=== PATIENT | female | born 1950 | race Caucasian/White ===

== ENCOUNTER → 2017-10-22 | Outpatient (CLI) | payer MEDICARE ==
--- NOTE | 2017-10-22 11:01 | CT ---
EXAMINATION TYPE: CT sinus wo con DATE OF EXAM: 10/22/2017 COMPARISON: NONE HISTORY: Chronic sinusitis CT DLP: 605.[address] of the paranasal sinuses was performed in the axial and coronal planes. Bone and soft tissue settings are submitted. Mucosal thickening of the bilateral maxillary sinuses. Partial narrowing right ostiomeatal unit with obstruction left ostiomeatal unit. There appear to be changes of partial ethmoidectomy. Remaining eth moid air cells demonstrate mucosal thickening as well. Mild mucosal thickening at the base of the fro ntal sinus. Mild mucosal thickening sphenoid sinus as well. No air-fluid levels identified. The nasal septum is midline. No bony destructive changes are seen within the field of view. IMPRESSION: 1. Findings compatible with chronic pansinusitis.
--- NOTE | 2017-10-22 11:30 | CT ---
EXAMINATION TYPE: CT chest wo con DATE OF EXAM: 10/22/2017 COMPARISON: NONE HISTORY: COPD CT DLP: 455.30 mGycm High-resolution noncontrast CT of the chest was performed with the patient in the prone and supine po sitions. Lung and mediastinal window settings are submitted. The lungs appear to be well-aerated. I do not see evidence for fibrotic change. Mild lower lobe bron chiectasis right greater than left. Mild parenchymal scarring right lower lobe, left lower lobe and r ight middle lobe. Small nodular density in the region of the lingula measuring 4.9 mm. No additional nodules seen. No pleural effusion is identified. I do not see evidence for hilar or mediastinal mass or adenopathy. IMPRESSION: 1. Mild lower lobe bronchiectasis right greater than left. 2. No evidence for fibrosis. 3. Small nonspecific nodule within the lingula. Standard CT of the chest is recommended in 3-4 months for further evaluation.
== END | disposition home or self-care (01) ==
LOC: RADCTMAIN 09:15
PROVIDERS: ATTEND Internal Medicine
DX: J47.9 Bronchiectasis, uncomplicated (principal); J32.9 Chronic sinusitis, unspecified
CPT/HCPCS: 70486; 71250

== ENCOUNTER → 2017-12-04 | Outpatient (CLI) | payer MEDICARE ==
[2017-12-04 10:26] LABS: Basophils # (A) 0.1 k/uL (0-0.2); Basophils % (A) 1 %; Eosinophils # (A) 0.9 k/uL (0-0.7); Eosinophils % (A) 11 %; HCT 37.7 % (34.0-46.0); HGB 13.2 gm/dL (11.4-16.0); Lymphocytes # (A) 1.3 k/uL (1.0-4.8); Lymphocytes % (A) 17 %; MCH 28.2 pg (25.0-35.0); MCHC 34.9 g/dL (31.0-37.0); MCV 80.8 fL (80.0-100.0); Mean Platelet Volume 7.4; Monocytes # (A) 0.7 k/uL (0-1.0); Monocytes % (A) 8 %; Neutrophils # (A) 4.8 k/uL (1.3-7.7); Neutrophils % (A) 61 %; Platelet Count 263 k/uL (150-450); RBC 4.67 m/uL (3.80-5.40); RDW 14.3 % (11.5-15.5); WBC 7.8 k/uL (3.8-10.6)
[2017-12-04 10:39] LABS: ALT 25 U/L (9-52); AST 20 U/L (14-36); Albumin 3.9 g/dL (3.5-5.0); Alkaline Phosphatase 73 U/L (38-126); Anion Gap 11 mmol/L; Blood Urea Nitrogen 13 mg/dL (7-17); Calcium 9.6 mg/dL (8.4-10.2); Carbon Dioxide 28 mmol/L (22-30); Chloride 104 mmol/L (98-107); Glucose 103 mg/dL (74-99); Potassium 3.4 mmol/L (3.5-5.1); Sodium 143 mmol/L (137-145); Total Bilirubin 0.4 mg/dL (0.2-1.3); Total Protein 6.7 g/dL (6.3-8.2)
[2017-12-04 10:46] LABS: Total Eosinophil Count 886 #EOS/uL (150-300)
[2017-12-04 18:14] LABS: Alternaria alternata IgE <0.10 kU/L; Birch IgE <0.10 kU/L; Cockroach IgE <0.10 kU/L; Dermato. farinae IgE <0.10 kU/L; Elm IgE <0.10 kU/L; Maple (Box Elder) IgE <0.10 kU/L; Oak IgE <0.10 kU/L; Red Top (Bentgrass) IgE <0.10 kU/L
[2017-12-05 13:53] LABS: Immunoglobulin M 51.6 mg/dL (40.0-280.0)
== END | disposition home or self-care (01) ==
LOC: LABWHC1 09:18
PROVIDERS: ATTEND Internal Medicine
DX: Z13.29 Encounter for screening for other suspected endocrine disorder (principal); Z13.220 Encounter for screening for lipoid disorders; J47.9 Bronchiectasis, uncomplicated; D83.9 Common variable immunodeficiency, unspecified; J45.50 Severe persistent asthma, uncomplicated; J32.0 Chronic maxillary sinusitis
CPT/HCPCS: 36415; 80053; 82784; 82785; 84443; 85008; 85025; 86003

== ENCOUNTER 2024-05-29 13:12 | Emergency (ER) | payer MEDICARE ==
[2024-05-29 13:20] VITALS: RESP 18; TEMP 98.3
--- NOTE | 2024-05-29 13:44 | ED ---
General Adult HPI - General Chief complaint: Weakness Stated complaint: both leg weakness/pain Time Seen by Provider: 05/29/24 13:19 Source: patient Mode of arrival: ambulatory Limitations: no limitations - History of Present Illness Initial comments: Dictation was produced using [employer] dictation software. please excuse any grammatical, word or spelling errors. Chief Complaint: 73-year-old female with generalized weakness History of Present Illness: Patient 73-year-old female she had hip surgery late last year. States that she has been undergoing physical therapy. Patient states that for the last week or so she has been having worsening weakness. She states that her whole body feels weak but mostly feels like it is in her left leg. She went to physical therapy and was having so much weakness that she needed help getting into her car. Patient lives at home by herself. She states that she does not have any trouble performing her activities of daily living. No fever, chills or night sweats. She notes that her left leg felt much more weak 3 days ago The ROS documented in this emergency department record has been reviewed and confirmed by me. Those systems with pertinent positive or negative responses have been documented in the HPI. All other systems are other negative and/or noncontributory. - Related Data Allergies Allergy/AdvReac Type Severity Reaction Status Date / Time No Known Allergies Allergy Verified 05/29/24 13:20 Review of Systems ROS Statement: Those systems with pertinent positive or pertinent negative responses have been documented in the HPI. ROS Other: All systems not noted in ROS Statement are negative. Past Medical History Past Medical History: Hypertension Additional Past Medical History / Comment(s): hypothyroidism, OP, History of Any Multi-Drug Resistant Organisms: None Reported Additional Past Surgical History / Comment(s): hip surgery- sep 25 2023 Past Psychological History: Depression Smoking Status: Never smoker Past Alcohol Use History: None Reported Past Drug Use History: None Reported General Exam - General Exam Comments Initial Comments: PHYSICAL EXAM: General Impression: Alert and oriented x3, not in acute distress HEENT: Normocephalic atraumatic, extra-ocular movements intact, pupils equal and reactive to light bilaterally, mucous membranes moist. Cardiovascular: Heart regular rate and rhythm Chest: Able to complete full sentences, no retractions, no tachypnea Abdomen: abdomen soft, non-tender, non-distended, no organomegaly Musculoskeletal: Pulses present and equal in all extremities, no peripheral edema Motor: no focal deficits noted Neurological: CN II-XII grossly intact, no sensory noted. 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 No ID prolongation, no QTC prolongation. EKG for comparison. right Bundle branch block. overall, this EKG is unremarkable Medical Decision Making - Medical Decision Making Was pt. sent in by a medical professional or institution (, PA, HAND EDGER, urgent care, hospital, or alf...) When possible be specific @ -No Did you speak to anyone other than the patient for history (EMS, parent, family, police, friend...)? What history was obtained from this source @ -No Did you review nursing and triage notes (agree or disagree)? Why? @ -I reviewed and agree with nursing and triage notes Were old charts reviewed (outside hosp., previous admission, EMS record, old EKG, old radiological studies, urgent care reports/EKG's, alf records)? Report findings @ -No old charts were reviewed Differential Diagnosis (chest pain, altered mental status, abdominal pain women, abdominal pain men, vaginal bleeding, musculoskeletal, weakness, fever, dyspnea, syncope, headache, dizziness, GI bleed, back pain, seizure, CVA, palpatations, mental health)? @ - Differential CVA: Ischemic stroke, hemorrhagic stroke, brain tumor, atypical migraine, Wernicke's encephalopathy, seizure, multiple sclerosis, meningitis, encephalitis, hypogly cemia, Guillain-Chen, electrolytes disturbance, myasthenia gravis.... This is not meant to be an all-inclusive list EKG interpreted by me (3pts min.). @ -See above X-rays interpreted by me (1pt min.). @ -Left hip x-ray shows no acute processes CT interpreted by me (1pt min.). @ -The brain shows no acute processes U/S interpreted by me (1pt. min.). @ -None done What testing was considered but not performed or refused? (CT, X-rays, U/S, labs)? Why? @ -None What meds were considered but not given or refused? Why? @ -None Was smoking cessation discussed for >3mins.? @ -No Were there social determinants of health that impacted care today? How? (Homelessness, low income, unemployed, alcoholism, drug addiction, transportation, low edu. Level, literacy, decrease access to med. care, group home, rehab)? @ -No Was there de-escalation of care discussed even if they declined (Discuss DNR or withdrawal of care, Hospice)? DNR status @ -No What co-morbidities impacted this encounter? (DM, HTN, Smoking, COPD, CAD, Cancer, CVA, ARF, Chemo, Hep., AIDS, mental health diagnosis, sleep apnea, morbid obesity)? @ -Left hip surgery Was patient admitted / discharged? Hospital course, mention meds given and route, prescriptions, significant lab abnormalities, going to OR and other pertinent info. @ -73-year-old female presents with chief complaint of left lower extremity weakness states that her symptoms have been ongoing for days. Patient has an NIH score of 0-1 barely noticeable drift in her left lower extremity. Patient does complain of generalized weakness. Laboratory evaluation obtained. Hemoglobin 9.7. Diminishing levels for the last couple years. Metabolic panel shows slight hypomagnesemia 1.5. This is negative. CT brain is negative. Clinical presentation slightly suspicious for acute CVA given that patient has focal isolated left lower extremity weakness. Although it is not much appreciated on physical examination. Patient recommended for observation admission with neurologist evaluation. She refused rather be discharged. She is told to follow-up closely with primary care doctor. Patient given magnesium replacement. Did you discuss the management of the patient with other professionals (professionals i.e. , PA, HAND EDGER, lab, RT, psych nurse, social media executive, over hauler helper, teacher, navigation officer, onsite case manager)? Give summary @ -No Was critical care preformed (if so, how long)? @ -No Undiagnosed new problem with uncertain prognosis? @ -No Drug Therapy requiring intensive monitoring for toxicity (Heparin, Nitro, Insulin, Cardizem)? @ -No Were any procedures done? @ -No Diagnosis/symptom? Acute, or Chronic, or Acute on Chronic? Uncomplicated (without systemic symptoms) or Complicated (systemic symptoms)? @ -Left lower extremity weakness Side effects of treatment? @ -No Exacerbation, Progression, or Severe Exacerbation? @ -No Poses a threat to life or bodily function? How? (Chest pain, [place], [place], pneumonia, PE, COPD, DKA, ARF, appy, cholecystitis, CVA, Diverticulitis, Homicidal, Suicidal, threat to staff... and all critical care pts) @ -yes - Lab Data Result diagrams: 05/29/24 14:00 05/29/24 14:00 Lab Results 05/29/24 05/29/24 05/29/24 Range/Units 14:00 14:00 14:36 WBC 5.8 (3.8-10.6) k/uL RBC 3.35 L (3.80-5.40) m/uL Hgb 9.7 L (11.4-16.0) gm/dL Hct 28.5 L (34.0-46.0) % MCV 84.8 (80.0-100.0) fL MCH 28.9 (25.0-35.0) pg MCHC 34.1 (31.0-37.0) g/dL RDW 13.3 (11.5-15.5) % Plt Count 338 (150-450) k/uL MPV 6.9 Neutrophils % 71 % Lymphocytes % 18 % Monocytes % 9 % Eosinophils % 0 % Basophils % 0 % Neutrophils # 4.1 (1.3-7.7) k/uL Lymphocytes # 1.0 (1.0-4.8) k/uL Monocytes # 0.5 (0-1.0) k/uL Eosinophils # 0.0 (0-0.7) k/uL Basophils # 0.0 (0-0.2) k/uL Sodium 137 (137-145) mmol/L Potassium 3.6 (3.5-5.1) mmol/L Chloride 102 (98-107) mmol/L Carbon Dioxide 30 (22-30) mmol/L Anion Gap 5 mmol/L BUN 31 H (7-17) mg/dL Creatinine 1.17 H (0.52-1.04) mg/dL Est GFR (CKD-EPI)AfAm 54 (>60 ml/min/1.73 sqM) Est GFR (CKD-EPI)NonAf 47 (>60 ml/min/1.73 sqM) Glucose 94 (74-99) mg/dL Calcium 9.4 (8.4-10.2) mg/dL Magnesium 1.5 L (1.6-2.3) mg/dL TSH 1.390 (0.465-4.680) mIU/L Urine Color Colorless Urine Appearance Clear (Clear) Urine pH 5.5 (5.0-8.0) Ur Specific Slick 1.017 (1.001-1.035) Urine Protein Negative (Negative) Urine Glucose (UA) Negative (Negative) Urine Ketones Negative (Negative) Urine Blood Negative (Negative) Urine Nitrite Negative (Negative) Urine Bilirubin Negative (Negative) Urine Urobilinogen <2.0 (<2.0) mg/dL Ur Leukocyte Esterase Moderate H (Negative) Urine RBC 3 (0-5) /hpf Urine WBC 3 (0-5) /hpf Ur Squamous Epith Cells <1 (0-4) /hpf Hyaline Casts 1 (0-2) /lpf Disposition Clinical Impression: Lower extremity weakness Disposition: HOME SELF-CARE Condition: Fair Instructions (If sedation given, give patient instructions): Weakness (ED) Is patient prescribed a controlled substance at d/c from ED?: No Referrals: Kati Gonsales DO [Primary Care Provider] - 1-2 days Time of Disposition: 15:54
[2024-05-29 14:24] LABS: Basophils % (A) 0 %; Eosinophils % (A) 0 %; HCT 28.5 % (34.0-46.0); HGB 9.7 gm/dL (11.4-16.0); Lymphocytes % (A) 18 %; MCH 28.9 pg (25.0-35.0); MCHC 34.1 g/dL (31.0-37.0); MCV 84.8 fL (80.0-100.0); Mean Platelet Volume 6.9; Monocytes # (A) 0.5 k/uL (0-1.0); Monocytes % (A) 9 %; Neutrophils # (A) 4.1 k/uL (1.3-7.7); Neutrophils % (A) 71 %; Platelet Count 338 k/uL (150-450); RBC 3.35 m/uL (3.80-5.40); RDW 13.3 % (11.5-15.5); WBC 5.8 k/uL (3.8-10.6)
[2024-05-29 14:25] LABS: African American GFR (CKD) 54 (>60 ml/min/1.73 sqM); Anion Gap 5 mmol/L; Blood Urea Nitrogen 31 mg/dL (7-17); Calcium 9.4 mg/dL (8.4-10.2); Carbon Dioxide 30 mmol/L (22-30); Chloride 102 mmol/L (98-107); Glucose 94 mg/dL (74-99); Magnesium 1.5 mg/dL (1.6-2.3); Non-African American GFR(CKD) 47 (>60 ml/min/1.73 sqM); Potassium 3.6 mmol/L (3.5-5.1); Sodium 137 mmol/L (137-145)
--- NOTE | 2024-05-29 14:40 | XR ---
EXAMINATION TYPE: XR Hip Limited LT DATE OF EXAM: 05/29/2024 2:10 PM CLINICAL INDICATION: Female, 73 years old with history of weakness; PHH COMPARISON: None. TECHNIQUE: XR Hip Limited LT; hip was examined in the frontal and lateral projections and a AP pelvis . FINDINGS: Left hip fixation changes. Hardware appears in size and position no new fractures identifie d. No evidence for acute process, joint dislocation or significant soft tissue swelling. IMPRESSION: No acute process.
[2024-05-29 14:52] LABS: Appearance,Urine Clear (Clear); Bilirubin,Urine Negative (Negative); Blood,Urine Negative (Negative); Color,Urine Colorless; Glucose,Urine (UA) Negative (Negative); Hyaline Casts,Urine 1 /lpf (0-2); Ketones,Urine Negative (Negative); Leukocyte Esterase,Urine Moderate (Negative); Nitrite,Urine Negative (Negative); PH, Urine 5.5 (5.0-8.0); Protein,Urine Negative (Negative); RBC,Urine 3 /hpf (0-5); Specific Gravity,Urine 1.017 (1.001-1.035); Squamous Epithelial Cell,Urine <1 /hpf (0-4); Urobilinogen,Urine <2.0 mg/dL (<2.0); WBC,Urine 3 /hpf (0-5)
--- NOTE | 2024-05-29 15:43 | CT ---
EXAMINATION TYPE: CT brain wo con CT DLP: 1168.5 mGycm, Automated exposure control for dose reduction was used. DATE OF EXAM: 05/29/2024 3:18 PM COMPARISON: None. CLINICAL INDICATION: Female, 73 years old with history of left leg weakness, TECHNIQUE: Brain: Axial CT images of the brain were obtained with coronal and sagittal reformats created and rev iewed. Contrast used: None. Oral contrast used: None. FINDINGS: Brain: Extra-axial spaces: No abnormal extra-axial fluid collections. Ventricular system: Dilatation in proportion to cerebral atrophy. Cerebral parenchyma: Cerebral atrophy. No acute intraparenchymal hemorrhage or mass effect. The ruiz -white junction is well differentiated. Scattered hypoattenuating areas are seen within the white mat ter. Cerebellum: Unremarkable. Mass effect: No evidence of midline shift. Intracranial vasculature: unremarkable Soft tissues: Normal. Calvarium/osseous structures: No depressed skull fracture. Paranasal sinuses and mastoid air cells: Mild scattered paranasal sinus disease. Visualized orbits: Orbital contents are intact. IMPRESSION: 1. No acute intracranial process. 2. Nonspecific white matter changes, likely secondary to chronic small vessel ischemic disease.
[2024-05-29] MEDS: MAGNESIUM SULFATE-D5W PMX 1 GM in DEXTROSE/WATER 1 100ML.BAG IVPB SCH (15:45)
[2024-05-29] MEDS: ASPIRIN 81 MG PO STA (16:03)
[2024-05-29 17:55] VITALS: BP 146/70; PULSE 66
== END 2024-05-29 17:55 | disposition home or self-care (01) ==
LOC: EC 13:12
DX: R53.1 Weakness (principal)
CPT/HCPCS: 36415; 93005; 80048; 83735; 84443; 85025; 81001; 73501; 70450; 99285; 96365; J3475

== ENCOUNTER → 2024-06-15 | Outpatient (CLI) | payer MEDICARE ==
--- NOTE | 2024-06-21 13:08 | MR ---
EXAMINATION TYPE: MR lumbar spine wo con DATE OF EXAM: 06/15/2024 12:28 PM CLINICAL INDICATION: Female, 73 years old with history of M54.16, M48.062, R53.1 WEAKNESS,RADICULOPAT HY,SPIN; COMPARISON: None TECHNIQUE: Multi planar, multi sequence imaging was performed utilizing: T1-weighted, T2-weighted, a nd turbo inversion recovery imaging of the lumbar spine. IV Contrast: cc . (None if empty) FINDINGS: Alignment: The lumbar vertebral bodies have preserved heights. There is levoscoliotic curvature apex L2-L3 on the left. Cord: The conus medullaris and the distal spinal cord appear unremarkable with regards to their signa l intensity and morphology. Bones/Discs: Moderate degeneration changes throughout the spine with osteophyte formation disc space narrowing facet joint arthropathy there is T12-L1: Scoliosis and facet joint arthropathy result in mild spinal canal and mild bilateral neural f oraminal stenosis. L1-L2: Scoliosis and facet joint arthropathy without significant spinal canal stenosis and mild bilat eral neural foraminal stenosis. L2-L3: Scoliosis and facet joint arthropathy result in mild spinal canal and mild left and moderate r ight neural foraminal stenosis. L3-L4: Scoliosis and facet joint arthropathy result in mild spinal canal and mild left and moderate r ight neural foraminal stenosis. L4-L5: Scoliosis and facet joint arthropathy result in mild spinal canal and severe left and moderate right neural foraminal stenosis. L5-S1: Scoliosis and Facet joint arthropathy with severe left and no significant right. Neural forami nal stenosis. No significant spinal canal or neural foraminal stenosis in the remainder of the visualized levels. Other findings: None. IMPRESSION: 1. Levoscoliosis apex L2-L3 which limits evaluation slightly due to spine positioning. Degeneration from scoliosis with multilevel neural foraminal stenosis. Findings worse at L5-S1 on the left with se ruthy stenosis. 2. No definitive evidence of disc herniation or significant spinal canal stenosis. [facility], , 06/21/2024 1:06 PM
== END | disposition home or self-care (01) ==
LOC: RADMRIMAIN 11:09
PROVIDERS: ATTEND Family Medicine
DX: M48.062 Spinal stenosis, lumbar region with neurogenic claudication (principal); M47.27 Other spondylosis with radiculopathy, lumbosacral region; M41.87 Other forms of scoliosis, lumbosacral region; M99.73 Connective tissue and disc stenosis of intervertebral foramina of lumbar region
CPT/HCPCS: 72148

== ENCOUNTER → 2024-06-20 | Outpatient (CLI) | payer MEDICARE ==
--- NOTE | 2024-06-20 10:26 | CT ---
EXAMINATION TYPE: CT hip LT wo con DATE OF EXAM: 06/20/2024 COMPARISON: Plain film 05/29/2024 HISTORY: LEFT HIP PAIN CT DLP: 364 mGycm Automated exposure control for dose reduction was used. Contrast: None Technique: Axial images 3 mm thick sections. Reconstructed images coronal and sagittal plane FINDINGS: There is a left hip pin extending into the femoral head. This may extend to the acetabulum, series 6 image 67. There may be incomplete union of the intertrochanteric fracture with impaction. No fractures are identified. Soft tissue pelvis appear unremarkable as visualized. IMPRESSION: 1. THERE APPEARS TO BE INCOMPLETE UNION OF A IMPACTED INTERTROCHANTERIC FRACTURE. THE HIP MAY EXTEND TOWARDS THE ACETABULUM WHICH MAY BE A CHANGE RECENT 05/29/2024 EXAM. [facility], , 06/20/2024 10:23 AM
== END | disposition home or self-care (01) ==
LOC: RADCTMAIN 09:16
PROVIDERS: ATTEND Orthopaedic Surgery
DX: M25.552 Pain in left hip (principal)